=== PATIENT | male | born 1970 | race Caucasian/White ===

== ENCOUNTER 2016-10-15 09:49 | Emergency (ER) | payer OTHER ==
[~2016-10-15] VITALS: Ht 180.3 cm; Wt 86.2 kg
[~2016-10-15 09:49] MED LIST: DAYPRO600 M1 PO; DOXYCYCLINE100 M3 PO; ROBAXIN750 MG PO; VICODIN 5-3001 EACH PO; VICODIN 500 MG-1 TAB PO
[2016-10-15] MEDS ORDERED: MEDROL DOSEPAK4 MG PO (10:37)
[2016-10-15] MEDS ORDERED: ZYRTEC10 MG PO (10:55)
== END 2016-10-15 10:23 | disposition home or self-care (01) ==
LOC: ED 09:49
DX: T63.441A Toxic effect of venom of bees, accidental (unintentional), initial encounter (principal); R68.2 Dry mouth, unspecified; Y92.9 Unspecified place or not applicable